=== PATIENT | male | born 1965 | race Caucasian/White ===

== ENCOUNTER 2018-04-04 21:44 | Observation (INO) | payer BC, MEDICARE, OTHER ==
[~2018-04-04] VITALS: Ht 177.8 cm; Wt 70.4 kg
[~2018-04-04 21:44] MED LIST: INSU100C SQ-INSULIN; INSU100I13 SQ; INSU100V8 SQ; ONDA4TAB10 PO; PROP20TA PO
[2018-04-04] MEDS ORDERED: OMEP-110 PO (22:06)
[2018-04-04] MEDS ORDERED: INSU100C5 SQ-INSULIN (22:06)
[2018-04-04] MEDS ORDERED: LIRA0.6P PO (22:06)
[2018-04-04 22:44] LABS: BASOPHILS # (AUTO) 0.03 x10^3/uL (0-0.1); BASOPHILS % (AUTO) 1 % (0-1); EOSINOPHILS # (AUTO) 0.18 x10^3/uL (0-0.4); EOSINOPHILS % (AUTO) 4 % (1-7); LYMPHOCYTES # (AUTO) 1.97 x10^3/uL (1-3.4); LYMPHOCYTES % (AUTO) 42 % (22-44); MD NO; MEAN CORPUSCULAR HEMOGLOBIN 32.9 pg (27.5-34.5); MEAN CORPUSCULAR HGB CONC 33.5 g/dL (33.2-36.2); MEAN CORPUSCULAR VOLUME 98.2 fL (81-97); MEAN PLATELET VOLUME 7.4 fL (7.4-10.4); MONOCYTES # (AUTO) 0.32 x10^3/uL (0.2-0.8); MONOCYTES % (AUTO) 7 % (2-9); NEUTROPHILS # (AUTO) 2.15 x10^3/uL (1.8-6.8); NEUTROPHILS % (AUTO) 46 % (42-75); PLATELET COUNT 252 x10^3/uL (130-400); RED BLOOD COUNT 3.57 x10^6/uL (4.38-5.82); RED CELL DISTRIBUTION WIDTH 14.4 % (9.4-14.8)
[2018-04-04 22:45] LABS: PH, VENOUS 7.302 pH (7.320-7.420)
[2018-04-04 22:56] LABS: ALANINE AMINOTRANSFERASE 45 U/L (12-78); ALBUMIN 3.1 g/dL (3.4-5.0); ANION GAP 10 mmol/L (5-15); CALCIUM 7.9 mg/dL (8.5-10.1); CHLORIDE 111 mmol/L (98-107)
[2018-04-04 22:57] LABS: ACETONE, SERUM Small (20mg/dL) mg/dL (Negative)
[2018-04-04 22:57] LABS: MICROSCOPIC NOT IND
[2018-04-04 22:58] LABS: ALKALINE PHOSPHATASE 88 U/L (45-117); BILIRUBIN,TOTAL 0.2 mg/dL (0.2-1.0); CREATININE 0.91 mg/dL (0.7-1.3); TOTAL PROTEIN 6.3 g/dL (6.4-8.2)
[2018-04-04 22:59] LABS: CULTURE INDICATED? NO
[2018-04-04] MEDS ORDERED: SODIUM CHLORIDE 0.9% 1,000ML IVBOLUS ONE (23:30)
[2018-04-05 01:07] VITALS: BP 147/80
[2018-04-05 01:20] VITALS: BP 147/80
[2018-04-05] MEDS ORDERED: INSULIN GLARGINE 100 UNITS/ML, PEN SQ-INSULIN SCH ×2 (01:30)
[2018-04-05] MEDS ORDERED: ACETAMINOPHEN 325 MG TABLET PO PRN (01:30)
[2018-04-05] MEDS ORDERED: DOCUSATE 100 MG CAPSULE PO PRN (01:30)
[2018-04-05] MEDS ORDERED: OXYcodone IR 5MG TABLET PO PRN (01:30)
[2018-04-05] MEDS ORDERED: BISACODYL 10 MG SUPP PR PRN (01:30)
[2018-04-05] MEDS ORDERED: ONDANSETRON 2MG/ML, 2ML IVPush PRN (01:30)
[2018-04-05] MEDS ORDERED: hydrALAzine 20 MG/ML, 1ML IVPush PRN (01:30)
[2018-04-05] MEDS ORDERED: ONDANSETRON ODT 4 MG PO PRN (01:30)
[2018-04-05] MEDS ORDERED: POLYETHYLENE GLYCOL 17 GM PACKET PO PRN (01:30)
[2018-04-05] MEDS ORDERED: morphine SULFATE 10 MG/ML, 1ML IVPush PRN (01:30)
[2018-04-05] MEDS ORDERED: PROMETHAZINE 25 MG/ML, 1ML IM PRN (01:30)
[2018-04-05 01:58] LABS: HEMOGLOBIN A1C 7.1 % (4.2-6.3)
[2018-04-05] MEDS: SODIUM CHLORIDE 0.9% 1,000 ML IV SCH ×3 (01:59→11:14)
[2018-04-05 02:00] LABS: FREE T4 (FREE THYROXINE) 0.81 ng/dL (0.76-1.46); THYROID STIMULATING HORMONE 0.938 mIU/L (0.358-3.740)
[2018-04-05] MEDS: PROPRANOLOL 10 MG TABLET PO SCH ×2 (02:02→10:12)
[2018-04-05] MEDS: INSULIN LISPRO 100 UNITS/ML, PEN SQ-INSULIN SCH ×3 (02:58→11:00)
[2018-04-05 04:36] LABS: BASOPHILS # (AUTO) 0.04 x10^3/uL (0-0.1); BASOPHILS % (AUTO) 1 % (0-1); EOSINOPHILS # (AUTO) 0.19 x10^3/uL (0-0.4); EOSINOPHILS % (AUTO) 5 % (1-7); LYMPHOCYTES # (AUTO) 1.99 x10^3/uL (1-3.4); LYMPHOCYTES % (AUTO) 49 % (22-44); MD NO; MEAN CORPUSCULAR HEMOGLOBIN 31.8 pg (27.5-34.5); MEAN CORPUSCULAR HGB CONC 32.8 g/dL (33.2-36.2); MEAN PLATELET VOLUME 7.3 fL (7.4-10.4); MONOCYTES # (AUTO) 0.36 x10^3/uL (0.2-0.8); MONOCYTES % (AUTO) 9 % (2-9); NEUTROPHILS # (AUTO) 1.47 x10^3/uL (1.8-6.8); NEUTROPHILS % (AUTO) 36 % (42-75); PLATELET COUNT 248 x10^3/uL (130-400); RED BLOOD COUNT 3.33 x10^6/uL (4.38-5.82); RED CELL DISTRIBUTION WIDTH 14.2 % (9.4-14.8)
[2018-04-05 04:50] LABS: CHLORIDE 113 mmol/L (98-107)
[2018-04-05 04:57] LABS: ALANINE AMINOTRANSFERASE 40 U/L (12-78); ALBUMIN 2.8 g/dL (3.4-5.0); ALKALINE PHOSPHATASE 75 U/L (45-117); ANION GAP 10 mmol/L (5-15); BILIRUBIN,TOTAL 0.2 mg/dL (0.2-1.0); CALCIUM 7.6 mg/dL (8.5-10.1); CHOLESTEROL, TOTAL 136 mg/dL (140-239); CREATININE 0.67 mg/dL (0.7-1.3); HDL CHOL % 49 % (26-37); HDL CHOLESTEROL (DIRECT) 67 mg/dL (40-60); LDL CHOLESTEROL,CALCULATED 55 mg/dL (54-169); LDL/HDL RATIO 0.8 (0.5-3.0); TOTAL PROTEIN 5.5 g/dL (6.4-8.2); TRIGLYCERIDES 72 mg/dL (50-200); VLDL CHOLESTEROL 14 mg/dL (0-25)
[2018-04-05 06:48] VITALS: BP 131/78
[2018-04-05 12:17] VITALS: BP 138/71
== END 2018-04-05 15:45 | disposition home or self-care (01) ==
LOC: ED 23:33 → INTOOBSV 23:40 → EDIP 23:40 → 3NW 04-05 00:51 → DCLOUNGE 04-05 15:37
PROVIDERS: ADMIT Internal Medicine; ATTEND Internal Medicine
DX: R53.1 Weakness (principal); E10.65 Type 1 diabetes mellitus with hyperglycemia; G25.0 Essential tremor; G89.29 Other chronic pain; M25.472 Effusion, left ankle; F12.10 Cannabis abuse, uncomplicated; E86.0 Dehydration; E87.2 Acidosis; W08.XXXA Fall from other furniture, initial encounter; Z79.4 Long term (current) use of insulin
CPT/HCPCS: 36415; 71045; 80053; 80061; 81003; 82010; 82803; 82947; 82962; 83036; 83690; 83735; 84439; 84443; 85025; 93005; 96360; 96361; 96372; 97163; 99285; G0378; G8978; G8979; G8980; J1815; J7030